=== PATIENT | female | born 1945 | race Caucasian/White ===

== ENCOUNTER 2017-09-05 10:20 | Emergency (ER) | payer MEDICARE ==
[2017-09-05 10:42] VITALS: BP 136/81; PULSE 82; RESP 16; TEMP 98.1
--- NOTE | 2017-09-05 11:39 | XR ---
Right knee HISTORY: Pain 3 views of the right knee There are ossific densities about the knee which could possibly represent loose bodies. Mild marginal spurring is present with joint space loss tricompartmentally. No fracture or dislocation evident. IMPRESSION: Osteoarthritis. 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
--- NOTE | 2017-09-05 12:24 | ED ---
General Adult HPI - General Chief complaint: Extremity Problem,Nontraumatic Stated complaint: RT KNEE PAIN Time Seen by Provider: 09/05/17 12:05 Source: patient, RN notes reviewed Mode of arrival: ambulatory Limitations: no limitations - History of Present Illness Initial comments: 72-year-old female presents to the emergency department for a chief complaint of right anterior knee pain 4 days. Patient denies any injury. Patient denies falling. Patient denies any pain behind the knee or in the calf. Denies any history of blood clot. Patient states she is able to ambulate on the knee at home using her cane. Patient states she sees Dr. Mckenzie for orthopedic shoulder pain. Patient states she has been taking Motrin and Tylenol for pain for the knee which has not been helping. Patient states she has taken Fanwood in the past and believes that will help. Patient states she tolerates Fanwood well. Patient denies any pain in the right foot or ankle. Patient denies any pain in the hip. Patient has no other complaints at this time including shortness of breath, chest pain, abdominal pain, nausea or vomiting, headache, or visual changes. - Related Data Previous Rx's Medication Instructions Recorded HYDROcodone/APAP 5-325MG [Fanwood 1 tab PO Q6HR PRN #10 tab 09/05/17 5-325] Allergies Allergy/AdvReac Type Severity Reaction Status Date / Time No Known Allergies Allergy Verified 09/05/17 10:42 Review of Systems ROS Statement: Those systems with pertinent positive or pertinent negative responses have been documented in the HPI. ROS Other: All systems not noted in ROS Statement are negative. Past Medical History Past Medical History: Diabetes Mellitus, Hyperlipidemia, Hypertension, Pulmonary Embolus (PE) History of Any Multi-Drug Resistant Organisms: None Reported Past Surgical History: Hysterectomy Additional Past Surgical History / Comment(s): thoracotomy, cervical fusion Past Psychological History: Anxiety Smoking Status: Never smoker Past Alcohol Use History: None Reported Past Drug Use History: None Reported General Exam Limitations: no limitations General appearance: alert, in no apparent distress Head exam: Present: atraumatic, normocephalic, normal inspection Eye exam: Present: normal appearance, PERRL, EOMI. Absent: scleral icterus, conjunctival injection, periorbital swelling ENT exam: Present: normal exam, mucous membranes moist Neck exam: Present: normal inspection, full ROM. Absent: tenderness, meningismus, lymphadenopathy Respiratory exam: Present: normal lung sounds bilaterally. Absent: respiratory distress, wheezes, rales, rhonchi, stridor Cardiovascular Exam: Present: regular rate, normal rhythm, normal heart sounds. Absent: systolic murmur, diastolic murmur, rubs, gallop, clicks Extremities exam: Present: tenderness (Tenderness to the anterior medial right knee. No tenderness behind the knee. No tenderness in the calf.), normal capillary refill (Refill less than 2 seconds and pedal pulse 2+.), joint swelling (No swelling of the right knee noted compared to the left knee. No redness, warmth, or signs of infection.), other (Sensation intact in the right lower extremity. Patient is able to walk on the right knee and was visualized ambulating using a cane). Absent: full ROM (90 flexion of the right knee. Full extension. Full range of motion of the right ankle.), calf tenderness (No tenderness in the right calf. No redness, no swelling, no warmth in the calf.) Course Vital Signs 09/05/17 10:38 Temperature 98.1 F Pulse Rate 82 Respiratory 16 Rate Blood Pressure 136/81 O2 Sat by Pulse 96 Oximetry Medical Decision Making - Medical Decision Making 72-year-old female presents to the emergency department for a chief complaint of right knee pain 4 days. No injury. Patient is visualized ambulating using a cane on the right knee. On exam and no swelling compared to the left knee. Patient has anterior knee tenderness. No tenderness behind the knee or calf. Negative Homans sign. No swelling redness or warmth in the calf. No signs of clot. No history of clot. She has about 90 flexion of the right knee and full extension. Neurovascular intact. X-ray shows osteoarthritis in the right knee. There may be synovial osteochondromatosis or loose bodies. Patient will follow-up outpatient for this with Dr. Mckenzie who is already her orthopedic surgeon. She will take Motrin for pain. If pain is severe she will take Fanwood. Patient states she has had Fanwood in the past and tolerates it well. Patient will return to the emergency Department if she has any worsening symptoms. Disposition Clinical Impression: Knee pain, right anterior Disposition: HOME SELF-CARE Condition: Good Instructions: Knee Pain (ED) Additional Instructions: Continue to use cane to walk. Rest, ice, and elevate the right knee. Take Motrin for pain. If pain is severe take Fanwood. Follow-up with orthopedics in 1 -2 days. Return to the emergency department if you have any worsening symptoms. Prescriptions: HYDROcodone/APAP 5-325MG [Fanwood 5-325] 1 tab PO Q6HR PRN #10 tab PRN Reason: Pain Is patient prescribed a controlled substance at d/c from ED?: Yes When asked, does pt state using other controlled substances?: No If prescribed controlled substance>3 days was MAPS reviewed?: Prescribed <3 Days If opioid is for acute pain is fill amount 7 days or less?: Yes If Rx opioid, was Start Talking consent form obtained?: Yes Referrals: Moe Delgadillo MD [Primary Care Provider] - 1-2 days Time of Disposition: 12:21
== END 2017-09-05 12:38 | disposition home or self-care (01) ==
LOC: EC 10:20
DX: M25.561 Pain in right knee (principal); M17.11 Unilateral primary osteoarthritis, right knee
CPT/HCPCS: 99283

== ENCOUNTER → 2017-09-06 | Outpatient (CLI) | payer MEDICARE ==
--- NOTE | 2017-09-06 07:57 | MR ---
EXAMINATION TYPE: MR shoulder RT wo con DATE OF EXAM: 09/06/2017 COMPARISON: Outside right shoulder x-ray July 18, 2017 HISTORY: Right shoulder pain per order. Pain for 6 months with difficulty raising overhead per patien t. TECHNIQUE: Multiplanar, multisequence imaging of the right shoulder is performed without contrast. FINDINGS: Rotator Cuff: There is increased signal distal supraspinatus tendon, there is near full-thickness te ar involving the anterior fibers with roughly 1.9 cm cleft seen on parasagittal image 21. Some family independence case manager ior fibers are intact. Infraspinatus tendon is intact. Subscapularis tendon is intact with some incre ased signal. Rotator cuff muscle bulk is maintained. Acromioclavicular Joint: There is moderate joint space loss and spurring, there is mild spurring from the inferior aspect of the acromion or type III acromion. Underlying impingement is suspected. Glenohumeral Joint: There is small to moderate glenohumeral joint effusion with focal fluid extending anterior to the glenoid and subscapularis tendon likely bursal in etiology measuring 3.5 x 1.1 cm ax ial image 12. No significant spurring is seen. Mild to moderate joint space loss is noted. Labrum: Increased signal and blunting likely consistent with degenerative tear is noted. Biceps Tendon: The long head of biceps is in normal location within bicipital groove. Bone marrow signal: No focal abnormal marrow signal is appreciated. Other: No additional significant abnormality is appreciated. IMPRESSION: 1. Tendinosis/high-grade tear of supraspinatus tendon. 2. Fairly moderate degenerative changes acromioclavicular and glenohumeral joints with underlying imp ingement felt present. Degenerative superior labral tear felt present. Anterior bursitis noted.
== END | disposition home or self-care (01) ==
LOC: RADMRIMAIN 06:02
PROVIDERS: ATTEND Orthopaedic Surgery
DX: M19.011 Primary osteoarthritis, right shoulder (principal); S43.401A Unspecified sprain of right shoulder joint, initial encounter; M75.51 Bursitis of right shoulder

== ENCOUNTER → 2017-10-18 | Outpatient (CLI) | payer MEDICARE ==
--- NOTE | 2017-10-18 17:39 | MR ---
EXAMINATION TYPE: MR knee RT wo con DATE OF EXAM: 10/18/2017 COMPARISON: Prior right knee x-ray September 05, 2017. HISTORY: Pain per order. Pain for 6 months per patient. TECHNIQUE: Multiplanar, multisequence images of the knee is performed without IV contrast. FINDINGS: MEDIAL MENISCUS: Anterior horn is intact without tear. Oblique and triangular increased signal dehydrogenation converter helper ior horn of medial meniscus appears to extend to inferior articular surface. LATERAL MENISCUS: Anterior horn shows horizontal increased signal not extending to articular surface. Posterior horn is intact. CRUCIATE LIGAMENTS: The anterior and posterior cruciate ligaments are intact and unremarkable. COLLATERAL LIGAMENTS: The medial collateral ligament and lateral collateral ligament complex are inta ct . Mild increased fluid signal surrounds the medial collateral ligament. EXTENSOR MECHANISM: Visualized quadriceps and patellar tendons are intact. EFFUSION: There is small suprapatellar joint effusion. POPLITEAL CYST: There are small to moderate size popliteal/baca cyst measuring 4.2 cm long axis sagi ttal image 11. TRICOMPARTMENT SPACES: Moderate to advanced joint space loss with mild spurring patellofemoral compar tment is seen. There is more mild to moderate lateral and medial tibiofemoral compartment joint space loss and mild spurring. CARTILAGE: There is full thickness chondromalacia patella along the posterior patellar pole. Some thi nning of articular cartilage medial tibiofemoral compartment is present. BONE MARROW SIGNAL: Heterogeneous cystic change involving the posterior patellar pole is noted. OTHER: No additional significant abnormality is appreciated. IMPRESSION: 1. Fairly advanced patellofemoral osteoarthropathy with full-thickness chondromalacia patella and santiago ctive osseous changes. 2. Background fairly moderate degenerative change medial and lateral tibiofemoral compartments. 3. Suspected full thickness tear posterior horn of medial meniscus. 4. Intrasubstance tearing anterior horn of lateral meniscus. 5. Mild MCL sprain injury. 6. Small to moderate sized popliteal cyst. 7. Small suprapatellar joint effusion.
== END | disposition home or self-care (01) ==
LOC: RADMRIMAIN 16:26
PROVIDERS: ATTEND Family Medicine
DX: S83.411A Sprain of medial collateral ligament of right knee, initial encounter (principal); M17.11 Unilateral primary osteoarthritis, right knee; S83.241A Other tear of medial meniscus, current injury, right knee, initial encounter; M22.41 Chondromalacia patellae, right knee; M71.21 Synovial cyst of popliteal space [Baker], right knee

== ENCOUNTER 2017-11-11 06:00 | Day surgery (SDC) | payer MEDICARE ==
[2017-11-07 16:41] VITALS: BMI 42.7
--- NOTE | 2017-11-09 10:08 | HP ---
HISTORY AND PHYSICAL CHIEF COMPLAINT: Right shoulder pain. HISTORY OF PRESENT ILLNESS: The patient is a 72-year-old, right-hand dominant, retired female, who presents with progressive right shoulder pain for the past 6 to 7 months. She is having pain with overhead activity and at night. She has tried medications, therapy, and an injection with only partial temporary relief. She notes it severely limits her. PAST MEDICAL HISTORY: Significant for type 2 diabetes, hypertension, hypercholesterolemia. PAST SURGICAL HISTORY: Significant for cervical fusion, previous lung surgery, hysterectomy, foot surgery. CURRENT MEDICATIONS: 1. Metformin. 2. Lisinopril. 3. Simvastatin. ALLERGIES: She denies drug allergies. FAMILY HISTORY: Significant for heart disease and blood clots. SOCIAL HISTORY: Negative for current tobacco or alcohol use. REVIEW OF SYSTEMS: Sixteen point review of systems otherwise reviewed and is noncontributory. PHYSICAL EXAMINATION: On examination, the patient is approximately 5 feet 1 inch, 234 pounds of endomorphic habitus. HEENT exam is nonfocal. Neck is supple. On examination of her right shoulder, she is tender about the anterior subacromial space. She has moderate subacromial crepitus. Active range of motion forward elevation 135 degrees, external rotation with arm at side 65 degrees, internal rotation to T12. Passively I am able to forward elevate her to 155 degrees. Motor strength is 4+ over 5 for abduction and external rotation with at the arm side. Impingement test, Neer test and speed tests are positive. Her distal neurovascular exam appears intact in the right upper extremity. MRI report right shoulder 09/06/2017 shows a high-grade partial-thickness tear of the supraspinatus in addition to a possible superior labral tear. IMPRESSION: 1. Right shoulder impingement with symptomatic rotator cuff tear. 2. Right shoulder bicipital tendinosis/possible superior labral tear. RECOMMENDATIONS: I talked to the patient at length regarding her condition and treatment options. At this point, she remains quite symptomatic despite extensive conservative measures. After thorough discussion, she opts to proceed with surgery. We will plan to proceed with arthroscopic evaluation of the right shoulder with possible subacromial decompression, rotator cuff debridement versus repair, and possible biceps tenotomy. Risks and benefits were discussed at length in layman's terms. We will likely perform that as an outpatient procedure. MMODL / IJN: [id number] /
[~2017-11-11 06:00] MED LIST: DEXAMETHASONE SOD PHOSPHATE 10 MG/ML 1 ML VIAL IV ONE; LACTATED RINGERS 1,000 ML IV SCH; MIDAZOLAM 2 MG/2 ML VIAL IV PRN; ONDANSETRON 4 MG/2 ML VIAL IVP ONE; ceFAZolin IN SWFI 2 GM/20 ML SYRINGE IVP ONE; fentaNYL (PF) 50 MCG/ML 2 ML AMP IV PRN
[2017-11-11 06:34] VITALS: RESP 16
[2017-11-11 06:47] LABS: Glucose,Whole Blood 135 mg/dL (75-99)
[2017-11-11] MEDS ORDERED: fentaNYL (PF) 50 MCG/ML 2 ML AMP IVP ONE (06:57)
[2017-11-11] MEDS ORDERED: MIDAZOLAM 2 MG/2 ML VIAL IVP ONE (06:57)
[2017-11-11] MEDS ORDERED: ROPIVACAINE 5 MG/ML 30 ML VIAL ONE (08:04)
[2017-11-11] MEDS ORDERED: fentaNYL (PF) 50 MCG/ML 2 ML AMP ONE (08:04)
[2017-11-11] MEDS ORDERED: PROPOFOL 10 MG/ML 20 ML VIAL IV ONE (08:04)
[2017-11-11] MEDS ORDERED: LIDOCAINE 1% INJ 10MG/ML (20 ML MDV) ONE (08:04)
[2017-11-11] MEDS ORDERED: MIDAZOLAM 2 MG/2 ML VIAL ONE (08:04)
[2017-11-11] MEDS ORDERED: SUCCINYLCHOLINE CHLORIDE VIAL 200 MG/10 ML VIAL IV ONE (08:04)
[2017-11-11] MEDS ORDERED: PHENYLEPHRINE-0.9% NACL SYG 1 MG/10 ML SYRINGE ONE (08:04)
[2017-11-11] MEDS ORDERED: EPINEPHrine (PF) 1 ML in SODIUM CHLORIDE 0.9% IRRIGATIO 3,000 ML IRRIGATION ONE ×8 (08:37)
[2017-11-11] MEDS ORDERED: LACTATED RINGERS 1,000 ML IV ONE (09:00)
--- NOTE | 2017-11-11 09:41 | P.OP ---
Date of Procedure: 11/11/17 Preoperative Diagnosis: symptomatic right rotator cuff tear Postoperative Diagnosis: 4 cm rotator cuff tear, high-grade partial-thickness tear long head of the biceps, grade 2 chondral injury posterior humeral head Procedure(s) Performed: right shoulder arthroscopic subacromial decompression/biceps tenotomy /humeral head chondroplasty/rotator cuff repair Implants: Arthrex 4.75 mm swivel lock anchor 2, 5.5 mm swivel lock anchor x one, 6.25 millimeters swivel lock anchor 1 Anesthesia: KRUPA, regional Surgeon: Ronald Quintero Structural Rigger #1: Richi Duncan Estimated Blood Loss (ml): 10 Pathology: none sent Condition: stable Disposition: PACU Indications for Procedure: The patient is a 72-year-old female who presents with progressive right shoulder pain despite extensive conservative measures. A discussion of the risks and benefits of operative intervention versus continued conservative measures was made with patient. She opted to proceed with surgery. Operative risks to include infection, neurovascular injury, development of blood clots, possible tendon rerupture, possible postoperative stiffness and need for subsequent procedures was discussed. Informed consent was obtained. Operative Findings: as below Description of Procedure: The patient was brought to the operating room, and after induction of general anesthesia was placed in a beachchair position. the bony prominences were appropriately padded. I examined the right shoulder. There was no gross block to passive motion. There was no gross glenohumeral instability. The right upper extremity was prepped and draped in normal fashion. The bony outlines the acromion, distal clavicle, and coracoid process were outlined with a skin marker. The glenohumeral joint was inflated with 50 mL of saline utilizing a spinal needle from posterior approach. A posterior portal was made through a 5 mm skin incision 1 medial medial and inferior to the posterior lateral border of the acromion. a blunt trocar was used to easily into the joint. diagnostic arthroscopy was performed. an anterior portal was made entering the joint above the subscapularis tendon through a 5 mm skin incision lateral to the coracoid process. the subscapularis appeared intact. The anterior labrum was intact. on inspection of the intra-articular portion the biceps, a high-grade partial- thickness tear was noted. It was elected to proceed with tenotomy at this point. The biceps was released from the superior labrum with electrocautery and lateral to retract to the bicipital groove. a grade 2 chondral injury was noted involving the posterior portion of the muscle head. There is a loose chondral fragment treated back to stable base with a motorized shaver. The posterior labrum was intact. On inspection the rotator cuff, a full-thickness tear involving the supraspinatus and a portion the infraspinatus was noted. The inferior recess was inspected. The arthroscope was placed into the subacromial space. A lateral portal was made through a 5 mm 2 cm lateral to the anterolateral acromion. The soft tissue on the undersurface the acromion was were removed with electrocautery and a shaver clearly defining the anterior medial and lateral borders as well as the distal clavicle. The coracoacromial ligament was detached from the anterior acromion with electrocautery. an anterior inferior acromioplasty is performed with a motorized lelia starting anterolateral, then extending this posteriorly, then extending this medially. was able to convert to a flat acromion. This was verified on the posterior lateral viewing portals.The rotator cuff was easily mobilized back to the greater tuberosity. the greater tuberosity was prepared with a motorized lelia lightly decorticating tendo bleeding bony surface. An accessory superior lateral portals made through a 4 mm skin incision distal the lateral edge of the acromion. the appropriate starting awl was utilized just off the articular surface for placement of 2 4.75 mm swivel lock anchors preloaded with #2 fiber tape. The fiber tape was then passed the rotator cuff with a scorpion suture passer. the case were crisscrossed and lateral row created utilizing a 5.5 mm swivel lock anchor and a 6.25 mm swivel lock anchor. Good purchase was obtained. Final arthroscopic view showed adequate compression of the footprint. the arthroscope was then removed. The portals were closed with simple 3-0 nylon suture. A sterile dressing was applied in addition to an abductor brace. The patient was then awoken from general anesthesia and transferred to recovery room in good condition. Blood loss was estimated at 10 mL. No complications were incurred. sponge and needle counts were correct at the end of the case.
[2017-11-11 09:42] VITALS: TEMP 97
[2017-11-11 09:56] LABS: Glucose,Whole Blood 190 mg/dL (75-99)
[2017-11-11 10:58] VITALS: BP 132/86; PULSE 100
--- NOTE | 2017-11-11 12:26 | P.ONQ ---
Anesthesiology Proc Note - PNB - Peripheral Nerve Block Performed Right Interscalene Single Time Out Performed: Yes Procedure Start Time: 06:55 Procedure Stop Time: 07:10 Indication: Requested by physician Specifically requested for management of pain by : Ronald Quintero Sedation Type: Sedate with meaningful contact maintained Preparation: Sterile Prep Position: Supine Needle Size: 50mm (2") Needle Gauge: 21 Technique: Ultrasound Injectate: 0.5% Ropivacaine (see comment for volume) (20 ml) Blood Aspirated: No Pain Paresthesia on Injection Noted: No Resistance on Injection: Normal Events: Uneventful and Well Tolerated
== END 2017-11-11 11:27 | disposition home or self-care (01) ==
LOC: OR 06:00
PROVIDERS: ATTEND Orthopaedic Surgery
DX: M75.121 Complete rotator cuff tear or rupture of right shoulder, not specified as traumatic (principal); S46.111A Strain of muscle, fascia and tendon of long head of biceps, right arm, initial encounter; X58.XXXA Exposure to other specified factors, initial encounter; N30.10 Interstitial cystitis (chronic) without hematuria; K21.9 Gastro-esophageal reflux disease without esophagitis; M19.90 Unspecified osteoarthritis, unspecified site; I10 Essential (primary) hypertension; F41.9 Anxiety disorder, unspecified; E78.00 Pure hypercholesterolemia, unspecified; E11.9 Type 2 diabetes mellitus without complications; G43.909 Migraine, unspecified, not intractable, without status migrainosus; Z79.899 Other long term (current) drug therapy; Z79.84 Long term (current) use of oral hypoglycemic drugs; Z86.711 Personal history of pulmonary embolism; Z85.828 Personal history of other malignant neoplasm of skin; Z86.19 Personal history of other infectious and parasitic diseases; Z90.710 Acquired absence of both cervix and uterus; Z98.1 Arthrodesis status
CPT/HCPCS: 64415; 29827; 29826; C1713 ×2; C1894; J2250; J0330; J1100; J2405; J0171; J2001; J3010; J2795; J2370; J2704; J0690

== ENCOUNTER → 2018-05-29 | Outpatient (CLI) | payer MEDICARE ==
--- NOTE | 2018-05-29 17:33 | BD ---
EXAMINATION TYPE: Axial Bone Density DATE OF EXAM: 05/29/2018 COMPARISON: NONE CLINICAL HISTORY: 73-year-old female postmenopausal screening without HRT Height: 60 IN Weight: 229 LBS FRAX RISK QUESTIONS: History of Fracture in Adulthood: LT FOOT FX AGE 72 Secondary Osteoporosis: 3. Menopause before 45: TOTAL HYST AGE 31 RISK FACTORS HISTORY OF: Active: YES Diet low in dairy products/other sources of calcium: YES Postmenopausal woman: AGE 31 TOTAL HYST Take estrogen and/or progesterone medications: NOT NOW How lon YEARS MEDICATIONS: Additional Medications: CALCIUM, VIT D, METFORMIN,LISINOPRIL, CITROLOPRAM, REFLUX MED, MULTI VIT, RODOLFO NAMON, TUMERIC EXAM MEASUREMENTS: Bone mineral densitometry was performed using the [employer] System. Bone mineral density as measured about the Lumbar spine is: ----- L1-L4(G/cm2): 1.173 T Score Values are as follows: ----- L2: -0.8 ----- L3: -0.7 ----- L4: 1.0 ----- L1-L4: -0.1 Bone mineral density BASELINE Bone mineral density about the R hip (g/cm2): 0.910 Bone mineral density about the L hip (g/cm2): 0.925 T Score values are as follows: -----R Neck: -0.9 -----L Neck: -0.8 -----R Total: -0.3 -----L Total: -0.1 Bone mineral density BASELINE IMPRESSION: Normal (Values between +1 and -1 indicate normal bone mass). Consider repeating this study in 5 year s or sooner if there is some new clinical indication. NOTE: T-SCORE=SD OF THE YOUNG ADULT MEAN.
--- NOTE | 2018-05-30 14:06 | MM ---
Reason for exam: screening (asymptomatic). Last mammogram was performed 1 year and 2 months ago. History: Patient is postmenopausal and history of other cancer. Family history of breast cancer in 2 paternal aunts. Took estrogen for 15 years. Took progesterone for 15 years. Physical Findings: A clinical breast exam by your physician is recommended on an annual basis and results should be correlated with mammographic findings. MG 3D Screening Mammo W/Cad Bilateral CC and MLO view(s) were taken. Prior study comparison: March 30, 2017, mammogram. March 24, 2017, mammogram. There are scattered fibroglandular densities. No significant changes when compared with prior studies. ASSESSMENT: Negative, BI-RAD 1 RECOMMENDATION: Routine screening mammogram of both breasts in 1 year.
== END | disposition home or self-care (01) ==
LOC: RADMAMWWP 14:18
PROVIDERS: ATTEND Family Medicine
DX: Z12.31 Encounter for screening mammogram for malignant neoplasm of breast (principal); Z13.820 Encounter for screening for osteoporosis; Z78.0 Asymptomatic menopausal state
CPT/HCPCS: 77063; 77067; 77080

== ENCOUNTER → 2019-09-28 | Outpatient (CLI) | payer MEDICARE ==
--- NOTE | 2019-10-01 11:57 | MM ---
Reason for exam: screening (asymptomatic). Last mammogram was performed 1 year and 4 months ago. History: Patient is postmenopausal and history of other cancer. Family history of breast cancer in 2 paternal aunts. Took estrogen for 15 years. Took progesterone for 15 years. Physical Findings: A clinical breast exam by your physician is recommended on an annual basis and results should be correlated with mammographic findings. MG 3D Screening Mammo W/Cad Bilateral CC and MLO view(s) were taken. Prior study comparison: May 29, 2018, bilateral MG 3d screening mammo w/cad. March 30, 2017, mammogram. October 31, 2015, mammogram. There are scattered fibroglandular densities. No significant changes when compared with prior studies. ASSESSMENT: Negative, BI-RAD 1 RECOMMENDATION: Routine screening mammogram of both breasts in 1 year.
== END | disposition home or self-care (01) ==
LOC: RADMAMWWP 14:43
PROVIDERS: ATTEND Family Medicine
DX: Z12.31 Encounter for screening mammogram for malignant neoplasm of breast (principal)
CPT/HCPCS: 77063; 77067

== ENCOUNTER → 2021-12-29 | Outpatient (CLI) | payer MEDICARE ==
--- NOTE | 2021-12-30 18:40 | MM ---
Reason for Exam: Screening (asymptomatic). Last mammogram was performed 2 year(s) and 3 month(s) ago. Patient History: Menarche at age 12. First Full-Term at age 20. Left ovary removed at age 31. Right ovary removed at age 31. Hysterectomy at age 31. Postmenopausal. Patient has history of breast feeding. Patient used Estrogen for 15 years. Patient used Progesterone for 15 years. Paternal aunt had breast cancer. Paternal aunt had breast cancer. Risk Values: Misty 5 year model risk: 1.4%. NCI Lifetime model risk: 3.0%. Prior Study Comparison: 10/31/2015 Screening Mammogram, Unknown. 03/24/2017 Screening Mammogram, Unknown. 03/30/2017 Screening Mammogram, Unknown. 05/29/2018 Bilateral Screening Mammogram, [facility]. 09/28/2019 Bilateral Screening Mammogram, [facility]. Tissue Density: There are scattered fibroglandular densities. Findings: Analyzed By CAD. There is no suspicious group of microcalcifications or new suspicious mass in either breast. Overall Assessment: Benign, BI-RAD 2 Management: Screening Mammogram of both breasts in 1 year. 1. Further management of patient's right-sided breast pain. 2. Patient should continue monthly self breast exams. 3. This exam should not preclude additional follow-up of suspicious palpable abnormalities. Electronically signed and approved by: Raina Hairston M.D. Radiologist
--- NOTE | 2021-12-30 18:40 | MM ---
Reason for Exam: Screening (asymptomatic). Last mammogram was performed 2 year(s) and 3 month(s) ago. Patient History: Menarche at age 12. First Full-Term at age 20. Left ovary removed at age 31. Right ovary removed at age 31. Hysterectomy at age 31. Postmenopausal. Patient has history of breast feeding. Patient used Estrogen for 15 years. Patient used Progesterone for 15 years. Paternal aunt had breast cancer. Paternal aunt had breast cancer. Risk Values: Misty 5 year model risk: 1.4%. NCI Lifetime model risk: 3.0%. Prior Study Comparison: 10/31/2015 Screening Mammogram, Unknown. 03/24/2017 Screening Mammogram, Unknown. 03/30/2017 Screening Mammogram, Unknown. 05/29/2018 Bilateral Screening Mammogram, [facility]. 09/28/2019 Bilateral Screening Mammogram, [facility]. Tissue Density: There are scattered fibroglandular densities. Findings: Analyzed By CAD. There is no suspicious group of microcalcifications or new suspicious mass in either breast. Overall Assessment: Benign, BI-RAD 2 Management: Screening Mammogram of both breasts in 1 year. 1. Further management of patient's right-sided breast pain. 2. Patient should continue monthly self breast exams. 3. This exam should not preclude additional follow-up of suspicious palpable abnormalities. Electronically signed and approved by: Raina Hairston M.D. Radiologist
== END | disposition home or self-care (01) ==
LOC: RADMAMWWP 13:23
PROVIDERS: ATTEND Family Medicine
DX: Z12.31 Encounter for screening mammogram for malignant neoplasm of breast (principal); Z78.0 Asymptomatic menopausal state; Z80.3 Family history of malignant neoplasm of breast
CPT/HCPCS: 77063; 77067

== ENCOUNTER → 2023-04-25 | Outpatient (CLI) | payer MEDICARE ==
[2023-04-25 19:52] LABS: ALT 19 U/L (8-44); AST 18 U/L (13-35); Albumin 4.2 g/dL (3.8-4.9); Albumin/Globulin Ratio 1.75 Ratio (1.60-3.17); Alkaline Phosphatase 80 U/L (41-126); Blood Urea Nitrogen 19.2 mg/dL (9.0-27.0); Calcium 9.7 mg/dL (8.7-10.3); Carbon Dioxide 22.5 mmol/L (21.6-31.8); Chloride 101 mmol/L (96-109); Chol/HDL Ratio 2.62 Ratio; Globulin 2.4 g/dL (1.6-3.3); Glucose 210 mg/dL (70-110); LDL Cholesterol,Calculated 60.8 mg/dL (0.0-131.0); Potassium 4.7 mmol/L (3.5-5.5); Sodium 137 mmol/L (135-145); Total Bilirubin 0.4 mg/dL (0.3-1.2); Total Protein 6.6 g/dL (6.2-8.2)
== END | disposition home or self-care (01) ==
LOC: LABWHC1 13:36
PROVIDERS: ATTEND Internal Medicine Interventional Cardiology
DX: E78.2 Mixed hyperlipidemia (principal)
CPT/HCPCS: 36415; 80053; 80061